=== PATIENT | male | born 1980 | race Caucasian/White ===

== ENCOUNTER 2021-02-06 08:15 | Outpatient (CLI) | payer BC ==
[2021-02-06 18:13] LABS: SARS-CoV-2 PCR by NAA Not Detected (NotDetected)
== END 2021-02-06 08:16 | disposition home or self-care (01) ==
LOC: LABBT 08:15
PROVIDERS: ATTEND Student in an Organized Health Care Education/Training Program
DX: Z01.812 Encounter for preprocedural laboratory examination (principal); J35.01 Chronic tonsillitis; J35.1 Hypertrophy of tonsils; J35.8 Other chronic diseases of tonsils and adenoids; J02.9 Acute pharyngitis, unspecified; G47.8 Other sleep disorders; R06.83 Snoring; R49.0 Dysphonia; F45.8 Other somatoform disorders; B99.9 Unspecified infectious disease; R06.02 Shortness of breath; Z20.822 Contact with and (suspected) exposure to COVID-19
CPT/HCPCS: U0003; U0005

== ENCOUNTER 2021-02-10 05:58 | Day surgery (SDC) | payer BC ==
[2021-02-09 16:03] VITALS: BMI 38.0
[2021-02-10] MEDS ORDERED: Meperidine HCl/PF 25 MG/ML VIAL ONE (06:29)
[2021-02-10] MEDS ORDERED: Famotidine/PF 20 mg/2ml Vial ONE (06:29)
[2021-02-10] MEDS ORDERED: Fentanyl 100 MCG/2 ML VIAL ONE ×2 (06:29→09:01)
[2021-02-10] MEDS ORDERED: Midazolam HCl 2 mg/2 ml Vial ONE (07:25)
[2021-02-10] MEDS ORDERED: Metoclopramide HCl 10 MG/2 ML VIAL ONE (07:29)
[2021-02-10] MEDS ORDERED: Dexamethasone 20 MG/5 ML VIAL ONE (07:29)
[2021-02-10] MEDS ORDERED: Lidocaine 1% PF 5 ML VIAL ONE (07:29)
[2021-02-10] MEDS ORDERED: Ketorolac Tromethamine 30 MG/ML VIAL ONE (07:29)
[2021-02-10] MEDS ORDERED: Ondansetron PF 4 MG/2 ML Vial ONE (07:29)
[2021-02-10] MEDS ORDERED: Succinylcholine 200 MG/10 ml SYRINGE FS ONE (07:29)
[2021-02-10] MEDS ORDERED: PROPOFOL 200 MG/20 ML VIAL ONE (07:29)
[2021-02-10] MEDS ORDERED: CEFAZOLIN 1 GM VIAL ONE (08:24)
== END 2021-02-10 11:19 | disposition home or self-care (01) ==
LOC: SDC 05:58
PROVIDERS: ATTEND Student in an Organized Health Care Education/Training Program
PROC: 0CTPXZZ Resection of Tonsils, External Approach (ICD-10-PCS; principal; 2021-02-10)
DX: J35.01 Chronic tonsillitis (principal); J35.8 Other chronic diseases of tonsils and adenoids; J02.9 Acute pharyngitis, unspecified; G47.30 Sleep apnea, unspecified; F45.8 Other somatoform disorders; F17.200 Nicotine dependence, unspecified, uncomplicated; Z79.2 Long term (current) use of antibiotics
CPT/HCPCS: 88304; J0690; J1100; J1885; J2175; J2250; J2405; J2704; J2765; J3010; S0028

== ENCOUNTER 2021-02-13 02:52 | Emergency (ER) | payer BC ==
[2021-02-13] MEDS ORDERED: Ondansetron ODT 8 MG TAB ONE (03:21)
[2021-02-13 03:44] LABS: #Basophils 0.1 thou/uL (0.0-0.2); #Eosinphils 0.2 thou/uL (0.0-0.7); #Lymphocytes 4.6 thou/uL (1.20-3.40); #Monocytes 1.2 thou/uL (0.11-0.59); #Neutrophils 5.6 thou/uL (1.40-6.50); %Basophils 0.7 % (0.0-1.0); %Lymphocytes 39.3 % (21.0-51.0); Hemoglobin 15.6 g/dL (14.0-18.0); Mean Corpuscular HGB CONC 35.9 g/dL (32.0-36.0); Mean Corpuscular Hemoglobin 33.8 pg (27.0-31.0); Mean Corpuscular Volume 94.2 fL (78.0-98.0); Mean Platelet Volume 7.3 fL (7.4-10.4); Platelet Count 259 thou/uL (130-400); RBC Distribution Width 12.9 % (11.5-14.5); Red Blood Cell (RBC) Count 4.61 mill/uL (4.70-6.10); White Blood Cell (WBC) Count 11.6 thou/uL (4.8-10.8)
== END 2021-02-13 04:54 | disposition home or self-care (01) ==
LOC: ERS 02:52
DX: J95.830 Postprocedural hemorrhage of a respiratory system organ or structure following a respiratory system procedure (principal)
CPT/HCPCS: 36415; 85025; 99283; Q0162